=== PATIENT | male | born 1960 | race Caucasian/White ===

== ENCOUNTER 2025-09-11 16:12 | Outpatient (REF) | payer MEDICAID, SELFPAY ==
--- OUTSIDE RECORDS SUMMARY | 2025-09-11 14:00 | XMS_ITS | Encounter Summary ---
Author Organization [employer] Address [address] [facility] [address] [place] [address] Care Team Providers Care Script Coordinator Name Role Phone NameSen MD Primary Care Provider [phone] Reason for Referral * Consultation (Routine) - Authorized Specialty Diagnoses / Procedures Referred By Luis Alfredo t Referred To Contact [facility] Manager / Dentistry Diagnoses Hypertension, unspecified type Sen Anaya MD [address] [place] [address] Phone: tel: fax: Referral ID Status Reason Start Date Expiration Date Visits Requested Visits Authorized [id number] Authorized Consult and Treat 09/11/2025 09/11/2026 1 1 * Consultation (Routine) - Authorized Specialty Diagnoses / Procedures Referred By Contac t Referred To Contact Behavioral Health Diagnoses Recurrent major depressive disorder, remission status unspecified ([facility]) Procedures Referral to Behavioral Health Sen Anaya MD [address] [place] [address] Phone: tel: fax: Referral ID Status Reason Start Date Expiration Date Visits Requested Visits Authorized [id number] Authorized Specialty Services Required 09/11/2025 09/11/2026 1 1 * Consultation (Routine) - Authorized Specialty Diagnoses / Procedures Referred By Contwyatt t Referred To Contact Diagnoses Food insecurity Sen Anaya MD [address] [place] [address] Phone: tel: fax: Referral ID Status Reason Start Date Expiration Date Visits Requested Visits Authorized [id number] Authorized Specialty Services Required 09/11/2025 09/11/2026 1 1 * Imaging (Routine) - Authorized Specialty Diagnoses / Procedures Referred By Contac t Referred To Contact Radiology Diagnoses Hepatitis C virus infection with hepatic coma, unspecified chronicity Procedures US Abdomen Comp w elastography NameSen MD [address] [place] [address] Phone: tel: fax: [address] Phone: tel: fax: Referral ID Status Reason Start Date Expiration Date V isits Requested Visits Authorized [id number] Authorized 09/11/2025 09/11/2026 1 1 Encounter Details Date Type Department Care Team (Late st Contact Info) Description 09/11/2025 2:00 PM EST Office Visit [facility] [address] [place] [phone] Sen Anaya MD [address] [place] [phone] Hypertension, unspecified type (Primary Dx); Hepatitis C virus infection with hepatic coma, unspecified chronicity; Uncomplicated opioid dependence (CMS/HCC) (HCC); Screening examination for STI; Food insecurity; Recurrent major depressive disorder, remission status unspecified (CMS/HCC); Encounter for immunization Social History Tobacco Use Types Packs/Day Years Used Date Smoking Tobacco: Every Day Cigarettes Smokeless Tobacco: Never Tobacco Cessation:Ready to Q uit: Not Asked; Counseling Given: Not Answered Alcohol Use Standard Drinks/Week Comments Yes 0 (1 standard drink = 0.6 oz pur e alcohol) Alcohol Answer Date Recorded How often do you have a drink containing alcohol ? 1 09/11/2025 How many drinks containing a lcohol do you have on a typical day when you are drinking? 2 09/11/2025 How often do you have six or more drinks on one occasion? 1 09/11/2025 Housing Stability Answer Date Recorded What is your housing situation today? I have js pena 09/04/[address] you li ve. Do you have problems with any of the following? None of the above 09/04/2025 Food Insecurity Answer Date Recorded Within the past 12 months, y ou worried that your food would run out before you got money to buy more: Sometimes True 2024 Within the past 12 months,th e food you bought just didn't last and you didn't have enough money to get more: Never True 09/11/2025 Transportation Answer Date Recorded In the past 12 months, has l ack of transportation kept you from medical appts, meetings, work or from getting things needed for daily living? Yes, it has kept me from medical appointments or getting medications. 09/11/2025 Utilities Answer Date Recorded In the past 12 months, has t he electric, gas, oil or water company threatened to shut off services in your home? No 09/04/2025 Depression Answer Date Recorded Patient Health Questionnaire-2 Score 4 09/11/2025 Internet Access Answer Date Recorded Internet Access Q1 Yes 09/04/2025 Internet Access Q2 Not on file 09/04/2025 Sex and Gender Information Value Date Recorded Sex Assigned at Male 09/08/2022 10:15 AM EDT Legal Sex Male 10:15 AM EDT Gender Identity Male 09/08/2022 10:15 AM EDT Sexual Orientation Straight 09/08/2022 10 :15 AM EDT documented as of this encounter Last Filed Vital Signs Vital Sign Reading Time Taken Comments Blood Pressure 162/95 09/11/2025 3:23 PM EST Pulse 119 09/11/2025 2:18 PM EST Temperature 36.5 C (97.7 F) 09/11/2025 2:18 PM EST Respiratory Rate 21 09/11/2025 2:18 PM EST Oxygen Saturation 98% 09/11/2025 2:18 PM EST Inhaled Oxygen Concentration - - Weight 60.8 kg (134 lb) 09/11/2025 2:18 PM EST Height 157.5 cm (5' 2 ) 09/11/2025 2:18 PM EST Body Mass Index 24.51 09/11/2025 2:18 PM EST documented in this encounter Functional Status * Over the past 2 weeks, how often have you been bothered by any of the following problems? Question Answer Date of Assessment Author Patient Health Questionnaire -2 Score 4 09/11/2025 3:04 PM Lorraine French MA * Little interest or pleasure in doing things Answer Date of Assessment Author More than half the days 09/11/2025 3:04 PM Ross Shen MA * Feeling down, depressed, or hopeless Answer Date of Assessment Author More than half the days 09/11/2025 3:04 PM Ross Shen MA * Trouble falling or staying asleep, or sleeping too much Answer Date of Assessment Author Several days 09/11/2025 3:04 PM Ross French MA * Feeling tired or having little energy Answer Date of Assessment Author Several days 09/11/2025 3:04 PM Ross French MA * Poor appetite or overeating Answer Date of Assessment Author Several days 09/11/2025 3:04 PM Ross French MA * Trouble concentrating on things, such as reading the newspaper or watching television Answer Date of Assessment Author More than half the days 09/11/2025 3:04 PM Ross Shen MA * Moving or speaking so slowly that other people could have noticed? Or the opposite - being so fidgety or restless that you have been moving around a lot more than usual. Answer Date of Assessment Author Nearly every day 09/11/2025 3:04 PM Ross French MA * Thoughts that you would be better off or hurting yourself in some way Answer Date of Assessment Author Not at all 09/11/2025 3:04 PM Ross French MA * Over the last 2 weeks, how often have you been bothered by any of the following problems? Question Answer Date of Assessment Author Feeling nervous, anxious, or on edge 3 09/11/2025 3:04 PM Lorraine French MA Not being able to stop or control worrying 3 09/11/2025 3:04 PM EST Lorraine Hartman MA Worrying too much about different things 2 09/11/2025 3:04 PM EST Lorraine Hartman MA Trouble relaxing 2 09/11/2025 3:04 PM EST Ross Bhandari MA Being so restless that it is hard to sit still 1 09/11/2025 3:04 PM Lorraine French MA Becoming easily annoyed or irritable 1 09/11/2025 3:04 PM Lorraine French MA Feeling afraid as if somethi ng awful might happen 0 09/11/2025 3:04 PM EST Lorraine Hartman MA JUSTINE-7 Total Score 12 09/11/2025 3:04 PM Ross French MA documented as of this encounter Progress Notes * Sen Anaya MD - 09/11/2025 2:00 PM EST Images from the original note were not included. Subjective: El Messer is a 65 y.o. male who presents to the office with a friend for a new patient visit. Previous PCP: Pt was previously a patient of [facility]; Last contact 06/26/2021. Patient has not seen a doctor in 2 years. Pt is currently on methadone; last dose today. HPI El Messer, age 65 years Headaches - Headaches with pressure sensation in the head ongoing for approximately 2.5 years - Occur on both sides of the head - Frequency about 3-4 episodes per month, each lasting up to 1-3 days - Headaches described as severe, sometimes causing forgetfulness - Vision changes reported as mild during headache episodes, but denies complete loss of vision - Light sensitivity during headache episodes - Relief with Tylenol and application of wet towel to the head - No specific triggers identified; onset can be random Chest Pain - Chest pain reported, not improved - Occurs intermittently, sometimes while lying down - Frequency variable, occur about 3-4 x / month - May be associated with episodes of high blood pressure High Blood Pressure - Reports episodes of very high blood pressure, including on the day of the visit - No prior regular follow-up for hypertension in past 2 years Forgetfulness - Reports episodes of forgetfulness, including forgetting appointments and household tasks (e.g., leaving oven on, forgetting laundry) - Difficulty remembering to take medications - Family assists with reminders and daily activities Methadone Maintenance - On methadone maintenance therapy for opioid use disorder for approximately 1.5 years - Receives methadone weekly (one week supply) at a local clinic Hepatitis C - History of hepatitis C diagnosed approximately 6 years ago - Treated with medication for 1.5 years [facility] [place] - No regular medical care or follow-up for past 2 years Current concerns: ROBERTS bilateral for about 2 years; with photophobia High blood pressure Chest pain with radiation down left arm ; ~ 3 days in month Pt interested in [employer] MACHINE OPERATOR to help with medication, acts of daily living; memory problems. Physically cabable, but forgets things. Problem List[1] Surgical History[2] None Family History[3] Mother of cardiac issues. Social History Living situation: Living in apartment; but needs help with rent / food / acts of daily living. Care Management coming to exam room; referral made. Employment/Education: Not employed d/t incapacity. Diet/exercise: Has food stamps; bread and rice, chicken, pork. Substance use: -alcohol; 2 six packs every other weekend -tobacco: active tobacco smoker -opioids: on methadone. Sexual activity: Mental health: Patient Health Questionnaire-2 Score: 4 (09/11/2025 3:04 PM) Thoughts that you would be better off or hurting yourself in some way: Not at all (09/11/2025 3:04 PM) Allergies[4] Review of Systems Constitutional: Negative. Negative for fatigue and fever. HENT: Negative. Negative for congestion, dental problem, ear pain, rhinorrhea, sinus pressure, sinus pain, sore throat and tinnitus. Eyes: Negative. Respiratory: Negative for cough, chest tightness, shortness of breath and wheezing. Cardiovascular: Positive for chest pain. Negative for leg swelling. Pt endorses chest pain ~ 3-4 x / month with pain radiating down left arm; this does not happen on exertion. Getting EKG. Gastrointestinal: Negative for abdominal pain, blood in stool, constipation, diarrhea, nausea and vomiting. Endocrine: Negative. Negative for polydipsia, polyphagia and polyuria. Genitourinary: Negative. Negative for decreased urine volume, difficulty urinating, frequency, hematuria, testicular pain and urgency. Musculoskeletal: Negative. Negative for back pain, joint swelling and neck pain. Skin: Negative. Negative for pallor and rash. Allergic/Immunologic: Negative. Neurological: Negative for dizziness, tremors, syncope, weakness and headaches. Hematological: Negative. Psychiatric/Behavioral: Positive for confusion and dysphoric mood. Negative for agitation, self-injury, sleep disturbance and suicidal ideas. The patient is nervous/anxious. came to the exam room and will be working with patient. 01/11/2021 12:03 AM 09/11/2025 2:18 PM 09/11/2025 3:23 PM Vitals Systolic 140 172 162 Diastolic 90 94 95 Heart Rate 78 119 Temp 97.7 ??F (36.5 ??C) Resp 21 Height (in) 5' 4.76 (1.645 m) 5' 2 (1.575 m) Weight (lb) 145.6 134 BMI 24.41 kg/m2 24.51 kg/m2 BSA (m2) 1.74 m2 1.63 m2 Visit Report Report Report Repeat BP 164/96. Physical Exam Constitutional: Appearance: Normal appearance. He is normal weight. HENT: Head: Normocephalic. Right Ear: Tympanic membrane, ear canal and external ear normal. Left Ear: Tympanic membrane, ear canal and external ear normal. Nose: Nose normal. Mouth/Throat: Mouth: Mucous membranes are moist. Pharynx: Oropharynx is clear. Eyes: Extraocular Movements: Extraocular movements intact. Conjunctiva/sclera: Conjunctivae normal. Pupils: Pupils are equal, round, and reactive to light. Cardiovascular: Rate and Rhythm: Normal rate and regular rhythm. Pulses: Normal pulses. Heart sounds: Normal heart sounds. No murmur heard. No gallop. Pulmonary: Effort: Pulmonary effort is normal. No respiratory distress. Breath sounds: Normal breath sounds. No wheezing, rhonchi or rales. Abdominal: General: Abdomen is flat. Palpations: Abdomen is soft. Tenderness: There is no abdominal tenderness. There is no right CVA tenderness, left CVA tendernessor guarding. Musculoskeletal: General: Normal range of motion. Cervical back: Normal range of motion and neck supple. Skin: General: Skin is warm. Capillary Refill: Capillary refill takes less than 2 seconds. Coloration: Skin is not jaundiced. Findings: No lesion. Neurological: General: No focal deficit present. Mental Status: He is alert and oriented to person, place, and time. Cranial Nerves: No cranial nerve deficit. Motor: No weakness. Gait: Gait normal. Psychiatric: Comments: Pt states he is depressed and anxious at times; pt denies SI; met patient in exam roomand will be following. Assessment & Plan Hypertension, unspecified type Orders: ECG 12 lead amLODIPine (Norvasc) 5 MG tablet; Take 1 tablet (5 mg) by mouth Once per day. Blood Pressure kit; Use once a day Follow up in 2 weeks for BP recheck Hepatitis C virus infection with hepatic coma, unspecified chronicity Orders: CBC auto differential; Future Hepatitis C Antibody with Reflex to HCV, RNA, Quantitative, Real-Time PCR; Future US Abdomen Comp w elastography; Future Comprehensive Metabolic Panel; Future Uncomplicated opioid dependence (CMS/HCC) (HCC) On methadone through [facility]. Receives 1 week supply on Fridays. Screening examination for STI Orders: Chlamydia/N. Gonorrhoeae, PCR, Urine Hepatitis B surface antigen, EIA; Future Hepatitis B Surface Antibody, Qualitative; Future HIV-1/2 Antigen and Antibodies, Fourth Generation, with Reflexes; Future Syphilis Screen; Future Food insecurity Orders: Referral to Care Management; Future Recurrent major depressive disorder, remission status unspecified (CMS/HCC) Orders: Referral to Behavioral Health; Future Encounter for immunization Orders: TDAP VACCINE 7 yrs + PCV-20 VACCINE 6 wks + FLU VACCINE TRIVALENT [id number] (Fluarix) 19 yrs + Routine Screening and Health Maintenance Optometry: Yes; referral made. Dental: Yes; referral made. Lab Review: no lab studies available for review at time of visit Current Medications[5] Immunization History Administered Date(s) Administered Hep B, adult 07/04/2010 Influenza injectable quadrivalent preservative free 09/26/2013 Influenza, IIV3, injectable 09/16/2010, 07/21/2011 Moderna Covid-19 Vaccine 12+ 03/15/2021, 04/23/2021 Moderna Covid-19 Vaccine 6+ Bivalent 10/20/2022 Pneumococcal Polysaccharide PPSV23 03/22/2010 Td (adult), 5 Lf tetanus toxoid, preservative free, adsorbed 09/25/2013 Tdap 03/22/2010 Headaches: - Monitor headache frequency and characteristics. Further evaluation deferred until blood pressure is controlled. Chest pain: - Monitor chest pain. Advised to call 911 if pain radiates or becomes severe. Hypertension: - Elevated blood pressure noted during visit. - Prescribed antihypertensive medication. Ordered blood pressure monitor to be picked up at pharmacy. Instructed to record daily blood pressure readings for two weeks. Scheduled follow-up visit in two weeks to assess response to medication and adjust treatment as needed. Hepatitis C: - Prior treatment for hepatitis C completed approximately six years ago. - Ordered blood tests to assess current hepatic function. Ordered liver ultrasound to evaluate hepatic status. Methadone maintenance: - Currently receiving methadone weekly at outside clinic. - No changes to methadone regimen. No referral needed at this time. Cognitive impairment and need for assistance with activities of daily living: - Forgetfulness and difficulty managing daily tasks noted. - Initiated referral for office support assistant ([employer] MACHINE OPERATOR) services to assist with activities of daily living. Dental care: - Referred to dental services. Advised to expect a call within one week to schedule appointment; instructed to call clinic if not contacted. Vision care: - Referred to optometry for eye examination. Screening for sexually transmitted infections: - Ordered laboratory testing for sexually transmitted infections. Social needs (housing, food, transportation): - Needs assistance with housing, food, and transportation identified. - Referred to care management for support with housing, food, and transportation resources. Behavioral health: - Behavioral health concerns identified. - Referred to behavioral health services for further evaluation and support. Next visit consider Acamprosate for alcohol dependence or work through [employer]. Address headaches at next visit, once BP is controlled. [facility] PICTURE ENLARGER Attestation PICTURE ENLARGER Resident Attestation: Patient was seen and evaluated by Shaan HARRISON, in collaboration with Sen Anaya MD who has reviewed my assessment and plan. I, Sen Anaya MD , have reviewed the resident's note and agree with the assessment & plan of care as documented above. Visit Conducted in: Vietnamese Translation by: Provided by [employer] Phone Service ID # [id number] and [phone]. This note was drafted using Ambient (AI) technology. The patient/patient's guardian has been informed and has consented to the use of this technology: Yes [1] Patient Active Problem List Diagnosis Depressive disorder Hepatitis C Hypertension Macrocytosis without anemia Neutropenia Uncomplicated opioid dependence (CMS/HCC) (HCC) Food insecurity Recurrent major depressive disorder (CMS/HCC) [2] No past surgical history on file. [3] No family history on file. [4] Allergies Allergen Reactions Penicillins [5] Current Outpatient Medications Medication Sig Dispense Refill amLODIPine (Norvasc) 5 MG tablet Take 1 tablet (5 mg) by mouth Once per day. 30 tablet 11 Blood Pressure kit Use once a day 1 kit 0 No current facility-administered medications for this visit. documented in this encounter Miscellaneous Notes * Assessment & Plan Note - Sen Anaya MD - 09/11/2025 2:00 PM ESTAssociated Problem(s): Hypertension Orders: ECG 12 lead amLODIPine (Norvasc) 5 MG tablet; Take 1 tablet (5 mg) by mouth Once per day. Blood Pressure kit; Use once a day Follow up in 2 weeks for BP recheck * Assessment & Plan Note - Sen Anaya MD - 09/11/2025 2:00 PM ESTAssociated Problem(s): Hepatitis C Orders: CBC auto differential; Future Hepatitis C Antibody with Reflex to HCV, RNA, Quantitative, Real-Time PCR; Future US Abdomen Comp w elastography; Future Comprehensive Metabolic Panel; Future * Assessment & Plan Note - Sen Anaya MD - 09/11/2025 2:00 PM ESTAssociated Problem(s): Uncomplicated opioid dependence (CMS/HCC) (HCC) On methadone through [facility] Receives 1 week supply on Fridays. * Assessment & Plan Note - Sen Anaya MD - 09/11/2025 2:00 PM ESTAssociated Problem(s): Food insecurity Orders: Referral to Care Management; Future * Assessment & Plan Note - Sen Anaya MD - 09/11/2025 2:00 PM ESTAssociated Problem(s): Recurrent major depressive disorder (CMS/HCC) Orders: Referral to Behavioral Health; Future documented in this encounter Plan of Treatment Upcoming Encounters Date Type Department Care Team (Late st Contact Info) Description 09/27/2025 2:00 PM EST Office Visit [facility] [address] [place] [address] Shaan De Paz FNP [address] [place] [phone] Scheduled Orders Name Type Priority Associated Diagnoses Orde r Schedule CBC auto differential Lab Routine Hepatitis C virus infection with hepatic coma, unspecified chronicity Expected: 09/11/2025 (Approximate), Expires: 09/11/2026 Chlamydia/N. Gonorrhoeae, PCR, Urine Lab Routine Screening Examination For Sti Ordered: 09/11/2025 Hepatitis C Antibody with Reflex to HCV, RNA, Quantitative, Real-Time PCR Lab Routine Hepatitis C virus infection with hepatic coma, unspecified chronicity Expected: 09/11/2025, Expires: 09/11/2026 Hepatitis B surface antigen, EIA Lab Routine Screening Examination For Sti Expected: 09/11/2025 (Approximate), Expires: 09/11/2026 Hepatitis B Surface Antibody, Qualitative Lab Routine Screening Examination For Sti Expected: 09/11/2025 (Approximate), Expires: 09/11/2026 HIV-1/2 Antigen and Antibodies, Fourth Generation, with Reflexes Lab Routine Screening Examination For Sti Expected: 09/11/2025 (Approximate), Expires: 09/11/2026 Syphilis Screen Lab Routine Screening examination for STI Expected: 09/11/2025, Expires: 09/11/2026 US Abdomen Comp w elastography Imaging Routine Hepatitis C virus infection with hepatic coma, unspecified chronicity Expected: 09/11/2025, Expires: 09/11/2026 Comprehensive Metabolic Panel Lab Routine Hepatitis C virus infection with hepatic coma, unspecified chronicity Expected: 09/11/2025 (Approximate), Expires: 09/11/2026 Scheduled Referrals Name Type Priority Associated Diagnoses Orde r Schedule Referral to Care Management Outpatient Referral Routine Food insecurity Expected: 09/11/2025 (Approximate), Expires: 09/11/2026 Referral to [facility] Dental Adult Outpatient Referral Routine Hypertension, unspecified type Expected: 09/11/2025 (Approximate), Expires: 09/11/2026 documented as of this encounter Procedures Procedure Name Priority Date/Time Associated Diagnosis Comments ECG 12-LEAD Routine 09/11/2025 4:12 PM EST Hypertension, unspecified type documented in this encounter Results * ECG 12 lead (09/11/2025 4:12 PM EST) Narrative Name, MD Sen - 09/11/2025 4:12 PM EST EKG Normal sinus rhythm, HR 90; no ischemic changes; non-specific T wave flattening II, III, AVF. Qtc 477 (patient on methadone). Sen Anaya MD ECG ORDERABLES Final Result documented in this encounter Visit Diagnoses Diagnosis Hypertension, unspecified type- Primary Hepatitis C virus infection with hepatic coma, unspecified chronicity Uncomplicated opioid dependence (CMS/HCC) (HCC) Screening examination for STI Food insecurity Recurrent major depressive disorder, remission status unspecified (CMS/HCC) Encounter for immunization documented in this encounter Care Teams Script Coordinator Relationship Specialty Start Date End Date Name, MD Sen [address] [place] [address] PCP - General Internal Medicine 09/11/25 documented as of this encounter
--- OUTSIDE RECORDS SUMMARY | 2025-09-11 17:11 | XMS_ITS | Clinical Summary ---
Author Organization [employer] Address [address] [facility] [address] [place] [address] Care Team Providers Care Budget Clerk Name Role Phone Name, Sen CONKLIN Primary Care Provider [phone] Allergies Active Allergy Reactions Criticality Noted Date Comments Penicillins 10/05/2018 Medications * This document contains information received from the source organization and may not represent a complete record from that organization. amLODIPine (Norvasc) 5 MG tabletIndication s:Hypertension, unspecified type Take 1 tablet (5 mg) by mouth Once per day. 30 tablet 11 09/11/2025 6 Active Blood Pressure kitIndications:H ypertension, unspecified type Use once a day 1 kit 09/11/2025 Active acetaminophen (Tylenol Extra Strength) 500 MG tablet Take 1 tablet (500 mg) by mouth every 8 (eight) hours if needed for mild pain. 90 tablet 09/11/2025 5 Active Active Problems Problem Noted Date Diagnosed Date Uncomplicated opioid dependence (CMS/HCC) 2024 Assessment & Plan (09/11/2025 4:14 PM EST): On methadone through N. Receives 1 week supply on Fridays. Food insecurity 09/11/2025 Assessment & Plan (09/11/2025 4:14 PM EST): Orders: Referral to Care Management; Future Recurrent major depressive disorder 09/11/2025 Assessment & Plan (09/11/2025 4:14 PM EST): Orders: Referral to Behavioral Health; Future Hepatitis C 06/17/2013 Assessment & Plan (09/11/2025 4:14 PM EST): Orders: CBC auto differential; Future Hepatitis C Antibody with Reflex to HCV, RNA, Quantitative, Real-Time PCR; Future US Abdomen Comp w elastography; Future Comprehensive Metabolic Panel; Future Macrocytosis without anemia 06/17/2013 Neutropenia 06/17/2013 Depressive disorder 06/06/2013 Hypertension 06/06/2013 Assessment & Plan (09/11/2025 4:14 PM EST): Orders: ECG 12 lead amLODIPine (Norvasc) 5 MG tablet; Take 1 tablet (5 mg) by mouth Once per day. Blood Pressure kit; Use once a day Follow up in 2 weeks for BP recheck Encounters * This document contains information received from the source organization and may not represent a complete record from that organization. Date Type Department Care Team Description 09/11/2025 2:00 PM EST Office Visit [facility] MEDICINE [address] [place] [id number] Sen Anaya MD Hypertension, unspecified type (Primary Dx); Hepatitis C virus infection with hepatic coma, unspecified chronicity; Uncomplicated opioid dependence (CMS/HCC) (HCC); Screening examination for STI; Food insecurity; Recurrent major depressive disorder, remission status unspecified (CMS/HCC); Encounter for immunization 09/11/2025 Travel 09/08/2025 Telephone [facility] MEDICINE [address] [place] [phone] Sen Anaya MD Chart Prep 09/04/2025 Patient Outreach [facility] [address] [place], [place] [phone] Sen Anaya MD Pre-visit Planning (SDOH negative, Tobacco screening negative. ) 06/14/2025 Telephone [facility] MEDICINE [address] [place] [phone] Pito Rivera MD from Last 3 Months Immunizations Immunization Administration Dates Next Due Hep B, adult 07/04/2010 Influenza injectable quadrivalent preservative f ree 09/26/2013 Influenza, IIV3, injectable 07/21/2011, 0 Influenza, seasonal, injectable, preservative fr ee 09/11/2025 Pneumococcal Conjugate PCV 20 09/11/2025 Pneumococcal Polysaccharide PPSV23 03/22/2010 Td (adult), 5 Lf tetanus tox oid, preservative free, adsorbed 09/25/2013 Tdap 09/11/2025,03/22/2010 Social History Tobacco Use Types Packs/Day Years [...] Orientation Straight 09/08/2022 10 :15 AM EDT Last Filed Vital Signs Vital Sign Reading [...] Mass Index 24.51 09/11/2025 2:18 PM EST Plan of Treatment Upcoming Encounters Date Type Department Care Team (Late st Contact Info) Description 09/27/2025 2:00 PM EST Office Visit [facility] MEDICINE [address] [place] [address] [phone] Shaan De Paz FNP [address] [place], [place] [phone] Health Maintenance Due Date Last Done Comments CT Colonography 1962 Colonoscopy 1962 Colorectal Cancer Screening 1962 FIT DNA/Cologuard 1962 FIT 1962 FOBT 1962 Lipid Panel 1962 Sigmoidoscopy 1962 Hepatitis A Vaccines (1 of 2 - Risk 2-dose series) 1981 Hepatitis B Vaccines (2 of 3 - Risk 3-dose series) 08/01/2010 07/04/2010 Zoster Vaccines (1 of 2) 2012 RSV Patients and Patients Aged 60 years or older (1 - Risk 60-74 years 1-dose series) 2022 COVID-19 Vaccine ( season) 2025 10/20/2022, 04/23/2021, 03/15/2021 Alcohol/Substance Use Screening 09/11/2026 09/11/2025 Depression Screening 09/11/2026 09/11/2025, 09/11/20 25 Disability Screening 09/11/2026 09/11/2025 SDOH Screening 09/11/2026 09/11/2025 Tobacco Screening 09/11/2026 09/11/2025 DTaP/Tdap/Td Vaccines (4 - Td or Tdap) 09/11/2035 09/11/2025, 09/25/2013, 03/22/2010 HIV Screening Completed 09/11/2020, 09/04/2020 Influenza Vaccine Completed 09/11/2025, , 07/21/2011, Additional history exists Pneumococcal Vaccine: 50+ Years Completed 09/11/2025, 03/22/2010 HIB Vaccines Aged Out No longer eligi ble based on patient's age to complete this topic HPV Vaccines Aged Out No longer eligi ble based on patient's age to complete this topic IPV Vaccines Aged Out No longer eligi ble based on patient's age to complete this topic Meningococcal B Vaccine Aged Out No l onger eligible based on patient's age to complete this topic Meningococcal Vaccine Aged Out No elmer rob eligible based on patient's age to complete this topic RSV under 20 months Aged Out No longe r eligible based on patient's age to complete this topic Rotavirus Vaccines Aged Out No longer eligible based on patient's age to complete this topic Procedures Procedure Name Priority Date/Time Associated Diagnosis Comments ECG 12-LEAD Routine 09/11/2025 4:12 PM EST Hypertension, unspecified type HIV 1/2 ANTIGEN/ANTIBODY, FOURTH GENERATION W/RFL Routine 09/11/2020 11:24 AM EST from Last 3 Months or Most Recently Relevant to Health Maintenance Results * ECG 12 lead (09/11/2025 4:12 PM EST) Narrative Name, MD Sen - 09/11/2025 4:12 PM EST EKG Normal sinus rhythm, HR 90; no ischemic changes; non-specific T wave flattening II, III, AVF. Qtc 477 (patient on methadone). Sen Anaya MD ECG ORDERABLES Final Result * HIV 1/2 ANTIGEN/ANTIBODY,FOURTH GENERATION W/RFL (09/11/2020 11:24 AM EST) HIV-1/2 ANTIGEN AND ANTIBODIES, 4TH GENERATION W/ REFLEX NON-REACT MYLES NON-REACT MYLES [facility] Comment: HIV-1 antigen and HIV-1/HIV-2 antibodies were not detected. There is no laboratory evidence of HIV infection. PLEASE NOTE: This information has been disclosed to you from records whose confidentiality may be protected by state law. If your state requires such protection, then the state law prohibits you from making any further disclosure of the information without the specific written consent of the person to whom it pertains, or as otherwise permitted by law. A general authorization for the release of medical or other information is NOT sufficient for this purpose. For additional information please refer to http://Estech.goOutMap.uGift/faq/QEI020 (This link is being provided for informational/ educational purposes only.) The performance of this assay has not been clinically validated in patients less than 2 years old. HIV-1/2 ANTIGEN AND ANTIBODIES, 4TH GENERATION W/ REFLEX NON-REACT MYLES NON-REACT MYLES [facility] Comment: HIV-1 antigen and HIV-1/HIV-2 antibodies were not detected. There is no laboratory evidence of HIV infection. PLEASE NOTE: This information has been disclosed to you from records whose confidentiality may be protected by state law. If your state requires such protection, then the state law prohibits you from making any further disclosure of the information without the specific written consent of the person to whom it pertains, or as otherwise permitted by law. A general authorization for the release of medical or other information is NOT sufficient for this purpose. For additional information please refer to http://Estech.goOutMap.uGift/faq/AIV416 (This link is being provided for informational/ educational purposes only.) The performance of this assay has not been clinically validated in patients less than 2 years old. HIV-1/2 ANTIGEN AND ANTIBODIES, 4TH GENERATION W/ REFLEX NON-REACT MYLES NON-REACT MYLES [facility] Comment: HIV-1 antigen and HIV-1/HIV-2 antibodies were not detected. There is no laboratory evidence of HIV infection. PLEASE NOTE: This information has been disclosed to you from records whose confidentiality may be protected by state law. If your state requires such protection, then the state law prohibits you from making any further disclosure of the information without the specific written consent of the person to whom it pertains, or as otherwise permitted by law. A general authorization for the release of medical or other information is NOT sufficient for this purpose. For additional information please refer to http://Estech.ServiceMax/faq/VKY556 (This link is being provided for informational/ educational purposes only.) The performance of this assay has not been clinically validated in patients less than 2 years old. HIV-1/2 ANTIGEN AND ANTIBODIES, 4TH GENERATION W/ REFLEX NON-REACT MYLES NON-REACT MYLES [facility] Comment: HIV-1 antigen and HIV-1/HIV-2 antibodies were not detected. There is no laboratory evidence of HIV infection. PLEASE NOTE: This information has been disclosed to you from records whose confidentiality may be protected by state law. If your state requires such protection, then the state law prohibits you from making any further disclosure of the information without the specific written consent of the person to whom it pertains, or as otherwise permitted by law. A general authorization for the release of medical or other information is NOT sufficient for this purpose. For additional information please refer to http://Estech.ServiceMax/faq/ZUF947 (This link is being provided for informational/ educational purposes only.) The performance of this assay has not been clinically validated in patients less than 2 years old. 09/11/2020 11:2 4 AM EST us Mike Edward MD LAB BLOOD ORDERABLES Final Res ult [facility] [address] from Last 3 Months or Most Recently Relevant to Health Maintenance Insurance [facility] C3 [facility] C[facility] Care Teams Budget Clerk Relationship Specialty Start Date End Date Name, MD Sen [address] [place] [address] PCP - General Internal Medicine 09/11/25
--- OUTSIDE RECORDS SUMMARY | 2025-09-11 17:11 | XMS_ITS | Encounter Summary ---
Author Organization [employer] Address [address] [facility] [address] [place] [address] Care Team Providers Care Glass Beveller Name Role Phone Name, Sen CONKLIN Primary Care Provider [phone] Reason for Visit * Reason Onset Date Comments New Patient Appt 05/15/2023 Encounter Details Date Type Department Care Team (Late Contact Info) Description 05/15/2023 Telephone [facility] MEDICINE [address] [place] [address] Pito Rivera MD [address] [place] [address] New Patient Appt Social History Tobacco Use Types Packs/Day Years Used Date Smoking Tobacco: Never Assessed Sex and Gender Information Value Date Recorded Sex Assigned at Male 09/08/2022 10:15 AM EDT Legal Sex Male 10:15 AM EDT Gender Identity Male 09/08/2022 10:15 AM EDT Sexual Orientation Straight 09/08/2022 10 :15 AM EDT documented as of this encounter Miscellaneous Notes * Telephone Encounter - Laureen Mckenzie - 05/15/2023 9:51 AM EDT Tc to El to Offer SOLUTION CONSULTANT Appt; Pt responded and was informed that he does not have insurance to please contact [employer] or to please come our insurance enrollment for help; once the process is complete, to please call back at [phone] to get appt as soon as possible. documented in this encounter Plan of Treatment Upcoming Encounters Date Type Department Care Team (Late Contact Info) Description 09/27/2025 2:00 PM EST Office Visit [facility] MEDICINE [address] [place] [address] Shaan De Paz FNP [address] [place] [address] documented as of this encounter Visit Diagnoses Not on filedocumented in this encounter Care Teams Glass Beveller Relationship Specialty Start Date End Date Name, MD Sen [address] [place] [address] PCP - General Internal Medicine 09/11/25 documented as of this encounter
--- OUTSIDE RECORDS SUMMARY | 2025-09-11 17:11 | XMS_ITS | Encounter Summary ---
Author Organization [employer] Address [address] [place] [address] Care Team Providers Care Scientific Programmer Analyst Name Role Phone Name, Sen CONKLIN Primary Care Provider [phone] Encounter Details Date Type Department Care Team (Latest Contact Info) Description 09/11/2025 Travel Social History Tobacco Use Types Packs/Day Years Used Date Smoking Tobacco: Every Day Cigarettes Smokeless Tobacco: Never Alcohol Use Standard Drinks/Week Comments Yes 0 [...] AM EDT documented as of this encounter Functional Status * Over the [...] or control worrying 3 09/11/2025 3:04 PM Lorraine French [place] Worrying too much about different things 2 09/11/2025 3:04 PM Lorraine French [place] Trouble relaxing 2 09/11/2025 3:04 PM Ross Shen [place] Being so restless that it is hard to sit still 1 09/11/2025 3:04 PM Lorraine French MA Becoming easily annoyed or irritable 1 09/11/2025 3:04 PM Lorraine French MA Feeling afraid as if somethi ng awful might happen 0 09/11/2025 3:04 PM Lorraine French MA JUSTINE-7 Total Score 12 09/11/2025 3:04 PM Ross French [place] documented as of this encounter Plan of Treatment Upcoming Encounters Date Type Department Care Team (Late st Contact Info) Description 09/27/2025 2:00 PM EST Office Visit [facility] MEDICINE [address] [place] [address] Shaan De Paz FNP [address] [place] [address] documented as of this encounter Visit Diagnoses Not on filedocumented in this encounter Care Teams Scientific Programmer Analyst Relationship Specialty Start Date End Date Name, MD Sen [address] [place] [address] PCP - General Internal Medicine 09/11/25 documented as of this encounter
--- OUTSIDE RECORDS SUMMARY | 2025-09-11 17:11 | XMS_ITS | Encounter Summary ---
Author Organization [employer] Address [address] [address] [facility] [address] [place] [address] Care Team Providers Care Input Output Clerk Name Role Phone Unavailable Primary Care Provider Unavailabl e Reason for Visit * Reason Onset Date Comments Chart Prep 09/08/2025 Encounter Details Date Type Department Care Team ([facility] st Contact Info) Description 09/08/2025 Telephone [facility] MEDICINE [address] [place] [address] Name, MD Sen [address] [place] [address] Chart Prep Social History Tobacco Use Types Packs/Day Years Used Date Smoking Tobacco: Never Assessed Housing Stability Answer Date Recorded What is your housing situation today? I have js pena 09/04/[address] you li ve. Do you have problems with any of the following? None of the above 09/04/2025 Food Insecurity Answer Date Recorded Within the past 12 months, y ou worried that your food would run out before you got money to buy more: Never True 09/04/2025 Within the past 12 months,th e food you bought just didn't last and you didn't have enough money to get more: Never True Transportation Answer Date Recorded In the past 12 months, has l ack of transportation kept you from medical appts, meetings, work or from getting things needed for daily living? No 09/04/2025 Utilities Answer Date Recorded In the past 12 months, has t he electric, gas, oil or water company threatened to shut off services in your home? No 09/04/2025 Internet Access Answer Date Recorded Internet Access [...] encounter Miscellaneous Notes * Telephone Encounter - Jhonny Campbell [place] - 09/08/2025 1:49 PM EDT Chart Prep Labs: not applicable Images: not applicable Referrals: not applicable Vaccines due: Covid, Flu, PCV20, Hep B, Hep A, RSV, Zoster, and DTAP Screenings: colonoscopyAlcohol/Substance Use Screening Overdue care gaps: SBIRT, PHQ-9, JUSTINE-7, Disability screen, and Tobacco documented in this encounter Plan of Treatment Upcoming Encounters Date Type Department Care Team (Late st Contact Info) Description 09/27/2025 2:00 PM EST Office Visit [facility] MEDICINE [address] [place] [address] Shaan De Paz FNP [address] [place] [address] documented as of this encounter Visit Diagnoses Not on filedocumented in this encounter
[2025-09-11 18:07] LABS: MANUAL DIFF FLAG NO
[2025-09-11 18:43] LABS: Hematocrit 42.6 % (42.0-52.0); Hemoglobin 14.6 g/dl (14.0-18.0); Imm Gran Abs Auto 0.02 X10*3/uL (0.00-0.03); Imm Gran Pct Auto 0.5 % (0.0-0.4); Lymphocytes Absolute Auto 2.2 X10*3/uL (1.2-4.9); Mean Corpuscular HGB Conc 34.3 g/dl (31.0-36.0); Mean Corpuscular Hemoglobin 34.5 pg (27.0-33.0); Mean Corpuscular Volume 100.7 fL (80.0-98.0); NRBC Abs Auto 0.000 X10*3/uL (0.0-0.012); NRBC Pct Auto 0.0 /100WBC (0.0-0.2); Platelet Count 173 X10*3/uL (160-400); Red Blood Count 4.23 X10*6/uL (4.60-5.80); White Blood Count 4.0 X10*3/uL (4.8-10.8)
[2025-09-11 18:48] LABS: Alanine Aminotransferase 98 U/L (0-40); Albumin Level 4.6 g/dL (3.5-5.0); Alkaline Phosphatase 100 U/L (39-117); Anion Gap 14 (12-20); Aspartate Amino Transferase 141 U/L (5-37); Blood Urea Nitrogen 16 mg/dL (9-16); Calcium 9.6 mg/dL (8.4-10.2); Carbon Dioxide 31 mmol/L (22-29); Chloride 104 mmol/L (96-108); Estimated Glomerular Filt Rate > 60; Potassium 4.8 mmol/L (3.3-5.1); Sodium 144 mmol/L (135-145); Total Protein 9.0 g/dL (6.5-8.0)
[2025-09-12 05:32] LABS: Syphilis Screen Nonreactive (Nonreactive)
[2025-09-12 07:03] LABS: HBS Num1 0.85 mIU/mL (0-7.99); HBsAGNum1 0.40 S/CO (0.00-0.99); HIV Num 1 0.08 S/CO (0.00-0.99); Hepatitis B Surface Antigen Negative (Negative); ~HepC Num1 14.61 S/CO (0.00-0.79); ~Hepatitis B Surface Antibody NONREACTIVE (Nonreactive); ~Hepatitis C Antibody Reactive (Nonreactive)
[2025-09-12 10:16] LABS: CT PCR Urine NOT DETECTED (Not Detect.); NG PCR Urine NOT DETECTED (Not Detect.)
[2025-09-14 06:08] LABS: HCV Log PCR 7.18 Log IU/mL (NOT DETECTED); HepC Viral Load 15200000 IU/mL (NOT DETECTED)
== END 2025-09-11 16:13 | disposition home or self-care (01) ==
LOC: HO.HHCL 16:12
PROVIDERS: PCP Internal Medicine Geriatric Medicine; Visit Provider Internal Medicine Geriatric Medicine
DX: Z20.2 Contact with and (suspected) exposure to infections with a predominantly sexual mode of transmission (principal); B19.21 Unspecified viral hepatitis C with hepatic coma; Z11.4 Encounter for screening for human immunodeficiency virus [HIV]
CPT/HCPCS: 80053; 85025; 86706; 86780; 86803; 87340; 87389; 87491; 87522; 87591

== ENCOUNTER 2025-09-28 09:31 | Outpatient (REF) | payer MEDICAID, SELFPAY ==
--- OUTSIDE RECORDS SUMMARY | 2025-09-27 14:00 | XMS_ITS | Encounter Summary ---
Author Organization [employer] Address [address] [place] [address] Care Team Providers Care Athletic Team Physician Name Role Phone Name, Sen CONKLIN Primary Care Provider [phone] Encounter Details Date Type Department Care Team (Late st Contact Info) Description 09/27/2025 2:00 PM EST Office Visit [facility] MEDICINE [address] [place] [address] Moises Whitman MD [address] [place], [place] [id number] Primary hypertension (Primary Dx); Macrocytosis without anemia Social History Tobacco Use Types Packs/Day Years Used Date Smoking Tobacco: Every Day Cigarettes Passive Smoke Exposure: Current Smokeless Tobacco: Never Tobacco Cessation:Ready to Q [...] Sign Reading Time Taken Comments Blood Pressure 152/90 09/27/2025 2:17 PM EST Pulse 88 09/27/2025 2:17 PM EST Temperature 37 C (98.6 F) 09/27/2025 2:17 PM EST Respiratory Rate 20 09/27/2025 2:17 PM EST Oxygen Saturation 98% 09/27/2025 2:17 PM EST Inhaled Oxygen Concentration - - Weight 62.4 kg (137 lb 9.6 oz) 09/27/2025 2:17 P M EST Height 157.5 cm (5' 2 ) 09/27/2025 2:17 PM EST Body Mass Index 25.17 09/27/2025 2:17 PM EST documented in this encounter Progress Notes * Moises Whitman MD - 09/27/2025 2:00 PM EST El Messer is a 65 y.o. male who presents with Slovak speaking friend for a follow up Blood Pressure check and possible medication adjustment. Active Concerns: Hypertension Headache Hep C AST>ALT pattern enzyme elevation CBC abnormalities El Messer, 65 years Hypertension - History of high blood pressure - Blood pressure medication taken almost daily, usually at the same time, sometimes in the afternoon - Blood pressure measured at home, some readings perceived as inaccurate - Previous blood pressure reading two weeks ago: 162/95 Headache and Visual Disturbance - Occasional mild headache - Reports transient blurred vision, currently not present Hepatitis C - History of hepatitis C infection - Underwent approximately one year of treatment about five years ago Viral Infection - Informed of having a viral infection prior to the encounter Anemia - Noted to have low red blood cell count prior to the encounter (macrocytic anemia) Vitamin Deficiency - Informed of possible low vitamin B12 prior to the encounter Problem List[1] Allergies[2] Review of Systems Constitutional: Negative for activity change, appetite change, fatigue, fever and unexpected weightchange. HENT: Negative. Occasional ROBERTS with increased BP. Eyes: Negative. Respiratory: Negative. Cardiovascular: Negative. Gastrointestinal: Negative. Endocrine: Negative. Genitourinary: Negative. Musculoskeletal: Negative. Skin: Negative. Neurological: Positive for light-headedness. Negative for syncope and weakness. Psychiatric/Behavioral: Negative for agitation, behavioral problems and confusion. The patient is not nervous/anxious. Vitals: 09/27/25 1417 BP: (!) 152/90 BP Location: Right arm Patient Position: Sitting BP Cuff Size: Adult Pulse: 88 Resp: 20 Temp: 98.6 ??F (37 ??C) TempSrc: Oral SpO2: 98% Weight: 137 lb 9.6 oz (62.4 kg) Height: 5' 2 (1.575 m) Discussed labs with patient. 09/11/25 Lab Results CBC w Diff Component Ref Range & Units (hover) 2 wk ago 5 yr ago White Blood Count 4.0 Low Red Blood Count 4.23 Low Hemoglobin 14.6 13.6 R Hematocrit 42.6 38.6 R Mean Corpuscular Volume 100.7 High Mean Corpuscular Hemoglobin 34.5 High Mean Corpuscular HGB Conc 34.3 Red Cell Distribution Width 13.6 Platelet Count 173 222 R Mean Platelet Volume 11.7 Neutrophils Percent Auto 26.4 Low Imm Gran Pct Auto 0.5 High Lymphocytes Percent Auto 53.8 High Monocytes Percent Auto 15.5 High Eosinophils Percent Auto 2.5 Basophils Percent Auto 1.3 NRBC Pct Auto 0.0 Neutrophils Absolute Auto 1.1 Low Imm Gran Abs Auto 0.02 Lymphocytes Absolute Auto 2.2 Monocytes Absolute Auto 0.6 Eosinophils Absolute Auto 0.1 Basophils Absolute Auto 0.1 NRBC Abs Auto 0.000 CMP Component Ref Range & Units (hover) 2 wk ago (09/11/25) 5 yr ago (09/11/20) 5 yr ago (09/11/20) 5 yr ago (09/04/20) Sodium 144 Potassium 4.8 Chloride 104 Carbon Dioxide 31 High Anion Gap 14 Urea Nitrogen (BUN) 16 12 R Creatinine, Serum 0.93 Estimated Glomerular Filt Rate >60 Comment: Chronic Kidney Disease: Estimated GFR < 60 mL/min/1.37u2Hddgjb Kidney Disease: Estimated GFR < 15 mL/min/1.73m2 Glucose 120 High Calcium 9.6 Bilirubin, Total 0.8 Aspartate Amino Transferase 141 High Alanine Aminotransferase 98 High 92 High R 123 High R Total Protein 9.0 High Albumin Level 4.6 Alkaline Phosphatase 100 Protein Gap Chlamydia / Gonorrhea PCR Urine - both Not Detected. Syphilis Screen - Nonreactive HIV-1/2 Antigen and Antibodies, Fourth Generation, with Reflexes - Nonreactive Hep B Surface Ag - Negative Hep B Surface AB - Nonreactive Hepatitis C Antibody with Reflex to HCV, RNA, Quantitative, Real-Time PCR : Hep C AB reactive Hep C Viral load: [id number] HCV Log PCR : 7.18 Dr. Dumont following for Hep C. Physical Exam Constitutional: Appearance: Normal appearance. He is normal weight. HENT: Head: Normocephalic. Right Ear: Tympanic membrane, ear canal and external ear normal. Left Ear: Tympanic membrane, ear canal and external ear normal. Nose: Nose normal. Mouth/Throat: Mouth: Mucous membranes are moist. Pharynx: Oropharynx is clear. Eyes: Extraocular Movements: Extraocular movements intact. Pupils: Pupils are equal, round, and reactive to light. Cardiovascular: Rate and Rhythm: Normal rate and regular rhythm. Pulses: Normal pulses. Heart sounds: Normal heart sounds. No murmur heard. No gallop. Pulmonary: Effort: Pulmonary effort is normal. Breath sounds: Normal breath sounds. No stridor. No wheezing, rhonchi or rales. Abdominal: General: Abdomen is flat. Bowel sounds are normal. Palpations: Abdomen is soft. There is no mass. Tenderness: There is no abdominal tenderness. There is no guarding. Musculoskeletal: General: Normal range of motion. Cervical back: Normal range of motion. Skin: General: Skin is warm. Capillary Refill: Capillary refill takes less than 2 seconds. Neurological: General: No focal deficit present. Mental Status: He is alert. Psychiatric: Mood and Affect: Mood normal. Behavior: Behavior normal. Assessment & Plan Primary hypertension Added Telmisartan 40 mg to Norvasc 5 mg. Macrocytosis without anemia B12/Folate Serum Panel and Magnesium lab ordered B12, Folic Acid Supplements ordered Primary hypertension: - Persistent elevated blood pressure despite current antihypertensive therapy. - Continue current antihypertensive medication. Initiate second antihypertensive agent. Monitor blood pressure daily and record readings with date and time. Follow-up appointment scheduled in two weeks to reassess blood pressure and adjust medication regimen as needed. Macrocytosis without anemia: - Macrocytosis identified; possible etiologies include vitamin B12 or folate deficiency. - Ordered laboratory tests for vitamin B12 and folate levels. Prescribed vitamin B12 and folic acidsupplementation to be started after completion of blood tests. Hepatitis C infection: - Chronic hepatitis C infection confirmed; evidence of hepatic involvement. - Ordered additional laboratory tests to further evaluate hepatic function and guide antiviral therapy. Referral to hepatology for management. Advised to avoid alcohol due to hepatic strain. Coordination with another provider (Nadya Ferreira) for further evaluation and treatment planning. Orders: cyanocobalamin (Vitamin B-12) 1000 MCG tablet; Take 1 tablet (1,000 mcg) by mouth Once per day. folic acid (Folvite) 1 MG tablet; Take 1 tablet (1 mg) by mouth Once per day. Vitamin B12/Folate, Serum Panel; Future Magnesium; Future Current Medications[3] Follow up in about 2 weeks (around 10/11/2025). For BP check. [facility] SPECIAL EDUCATION CURRICULUM SPECIALIST Attestation SPECIAL EDUCATION CURRICULUM SPECIALIST Resident Attestation: Patient was seen and evaluated by Shaan HARRISON, in collaboration with Moises Whitman MD who has reviewed my assessment and plan. I, Moises Whitman MD , have reviewed the resident's note and agree with the assessment & plan of care as documented above. Visit Conducted in: Iranian Translation by: friend accompanying patient. [1] Patient Active Problem List Diagnosis Mild depression Hepatitis C Hypertension Macrocytosis without anemia Neutropenia Uncomplicated opioid dependence (CMS/HCC) (HCC) Food insecurity Anxiety [2] Allergies Allergen Reactions Penicillins [3] Current Outpatient Medications: acetaminophen (Tylenol Extra Strength) 500 MG tablet, Take 1 tablet (500 mg) by mouth every 8 (eight) hours if needed for mild pain., Disp: 90 tablet, Rfl: 0 amLODIPine (Norvasc) 5 MG tablet, Take 1 tablet (5 mg) by mouth Once per day., Disp: 30 tablet, Rfl: 11 Blood Pressure kit, Use once a day, Disp: 1 kit, Rfl: 0 cyanocobalamin (Vitamin B-12) 1000 MCG tablet, Take 1 tablet (1,000 mcg) by mouth Once per day., Disp: 30 tablet, Rfl: 11 folic acid (Folvite) 1 MG tablet, Take 1 tablet (1 mg) by mouth Once per day., Disp: 30 tablet, Rfl: 11 telmisartan (Micardis) 20 MG tablet, Take 1 tablet (20 mg) by mouth Once per day., Disp: 30 tablet,Rfl: 11 documented in this encounter Miscellaneous Notes * Assessment & Plan Note - Moises Whitman MD - 09/27/2025 2:00 PM EST Associated Problem(s): Hypertension Added Telmisartan 40 mg to Norvasc 5 mg. * Assessment & Plan Note - Moises Whitman MD - 09/27/2025 2:00 PM EST Associated Problem(s): Macrocytosis without anemia B12/Folate Serum Panel and Magnesium lab ordered B12, Folic Acid Supplements ordered Primary hypertension: - Persistent elevated blood pressure despite current antihypertensive therapy. - Continue current antihypertensive medication. Initiate second antihypertensive agent. Monitor blood pressure daily and record readings with date and time. Follow-up appointment scheduled in two weeks to reassess blood pressure and adjust medication regimen as needed. Macrocytosis without anemia: - Macrocytosis identified; possible etiologies include vitamin B12 or folate deficiency. - Ordered laboratory tests for vitamin B12 and folate levels. Prescribed vitamin B12 and folic acidsupplementation to be started after completion of blood tests. Hepatitis C infection: - Chronic hepatitis C infection confirmed; evidence of hepatic involvement. - Ordered additional laboratory tests to further evaluate hepatic function and guide antiviral therapy. Referral to hepatology for management. Advised to avoid alcohol due to hepatic strain. Coordination with another provider (Nadya Ferreira) for further evaluation and treatment planning. Orders: cyanocobalamin (Vitamin B-12) 1000 MCG tablet; Take 1 tablet (1,000 mcg) by mouth Once per day. folic acid (Folvite) 1 MG tablet; Take 1 tablet (1 mg) by mouth Once per day. Vitamin B12/Folate, Serum Panel; Future Magnesium; Future documented in this encounter Plan of Treatment Upcoming Encounters Date Type Department Care Team (Late st Contact Info) Description 10/11/2025 3:15 PM EST Office Visit [facility] MEDICINE [address] [place] [address] Shaan De Paz FNP [address] [place] [address] documented as of this encounter Procedures Procedure Name Priority Date/Time Associated Diagnosis Comments VITAMIN B12/FOLATE, SERUM PANEL Routine 09/28/2025 9:40 AM EST Macrocytosis without anemia MAGNESIUM Routine 09/28/2025 9:40 AM EST Macrocytosis without anemia documented in this encounter Results * Magnesium (09/28/2025 9:40 AM EST) Magnesium 1.8 1.6 - 2.6 mg/dL [facility] Blood Venous blood specimen / Unknown 09/28/2025 9:40 AM EST 09/28/2025 11:07 AM EST us Shaan De Paz [employer]I [employer] ATTENDANT LAB BLOOD ORDERABLES Final Re sult [facility] [address] [place] [address] [phone] * Vitamin B12/Folate, Serum Panel (09/28/2025 9:40 AM EST) Vitamin B12 591 200 - 900 pg/mL [facility] Comment:NORMAL 200-900 PG/ML INDETERMINATE 160-199 PG/ML DEFICIENT < 160 PG/ML Folate 10.8 > or = 4.0 ng/mL [facility] Comment:Reference Values:> o r = 4.0 ng/mL< 4.0 ng/mL suggests folate deficiency Methotrexate, aminopterin and folinic acid(leucovorin) are chemotherapeutic agents whose molecularstructures are similar to folate; therefore, the Architectfolate assay cannot be used for patients using these drugs. Blood Venous blood specimen / Unknown 09/28/2025 9:40 AM EST 09/28/2025 11:07 AM EST Shaan De Paz [employer] BAR ATTENDANT LAB BLOOD ORDERABLES Final Re sult [facility] [address] [place] [address] [phone] documented in this encounter Visit Diagnoses Diagnosis Primary hypertension- Primary Unspecified essential hypertension Macrocytosis without anemia Other specified diseases of blood and blood-forming organs documented in this encounter Care Teams Athletic Team Physician Relationship Specialty Start Date End Date Name, MD Sen [address] [place] [address] PCP - General Internal Medicine 09/11/25 documented as of this encounter
[2025-09-28 11:25] LABS: Reticulocytes Absolute 0.062 X10*6/uL (0.026-0.095)
[2025-09-28 11:28] LABS: INTERNATIONAL NORM RATIO 1.0 (0.9-1.1); Prothrombin Time 12.1 SEC (11.2-13.5)
[2025-09-28 11:51] LABS: Alanine Aminotransferase 71 U/L (0-40); Albumin Level 3.6 g/dL (3.5-5.0); Alkaline Phosphatase 103 U/L (39-117); Anion Gap 10 (12-20); Aspartate Amino Transferase 79 U/L (5-37); Blood Urea Nitrogen 9 mg/dL (9-16); Calcium 8.5 mg/dL (8.4-10.2); Carbon Dioxide 28 mmol/L (22-29); Chloride 107 mmol/L (96-108); Estimated Glomerular Filt Rate > 60; Magnesium 1.8 mg/dL (1.6-2.6); Potassium 4.0 mmol/L (3.3-5.1); Sodium 141 mmol/L (135-145); Total Protein 7.0 g/dL (6.5-8.0)
[2025-09-28 12:26] LABS: HBc Num1 9.09 S/CO (0.00-0.79)
[2025-09-28 12:28] LABS: Folate 10.8 ng/mL (> or = 4.0); Vitamin B12 591 pg/mL (200-900)
--- OUTSIDE RECORDS SUMMARY | 2025-09-28 13:11 | XMS_ITS | Clinical Summary ---
Author Organization [employer] Address [address] [facility] 7t [place] [address] Care Team Providers Care Inorganic Chemist Name Role Phone Name, Sen CONKLIN Primary Care Provider [phone] Allergies Active Allergy Reactions Criticality Noted Date Comments Penicillins 10/05/2018 Medications * This document contains information received from the source organization and may not represent a complete record from that organization. amLODIPine (Norvasc) 5 MG tabletIndications :Hypertension, unspecified type Take 1 tablet (5 mg) by mouth Once per day. 30 tablet 11 09/11/2025 09/11/20 26 Active Blood Pressure kitIndications:Hy pertension, unspecified type Use once a day 1 kit 09/11/2025 Active acetaminophen (Tylenol Extra Strength) 500 MG tablet Take 1 tablet (500 mg) by mouth every 8 (eight) hours if needed for mild pain. 90 tablet 09/11/2025 10/11/20 25 Active cyanocobalamin (Vitamin B-12) 1000 MCG tabletIndications :Macrocytosis without anemia Take 1 tablet (1,000 mcg) by mouth Once per day. 30 tablet 09/28/2025 10:01 AM EST 09/27/2025 09/27/20 26 Active folic acid (Folvite) 1 MG tabletIndications :Macrocytosis without anemia Take 1 tablet (1 mg) by mouth Once per day. 30 tablet 09/28/2025 10:01 AM EST 09/27/2025 09/27/20 26 Active telmisartan (Micardis) 20 MG tabletIndications :Primary hypertension Take 1 tablet (20 mg) by mouth Once per day. 30 tablet 11 09/28/2025 10:01 AM EST 09/27/2025 09/27/20 26 Active Active Problems Problem Noted Date Diagnosed Date Anxiety 09/12/2025 Uncomplicated opioid dependence (CMS/HCC) 2024 Assessment & Plan (09/11/2025 4:14 PM EST): On methadone through N. Receives 1 week supply on Fridays. Food insecurity 09/11/2025 Assessment & Plan (09/11/2025 4:14 PM EST): Orders: Referral to Care Management; Future Hepatitis C 06/17/2013 Assessment & Plan (09/11/2025 4:14 PM EST): Orders: CBC auto differential; Future Hepatitis C Antibody with Reflex to HCV, RNA, Quantitative, Real-Time PCR; Future US Abdomen Comp w elastography; Future Comprehensive Metabolic Panel; Future Macrocytosis without anemia 06/17/2013 Assessment & Plan (09/27/2025 3:57 PM EST): B12/Folate Serum Panel and Magnesium lab ordered [...] folate levels. Prescribed vitamin B12 and folic acid supplementation to be started after completion of blood [...] Vitamin B12/Folate, Serum Panel; Future Magnesium; Future Neutropenia 06/17/2013 Mild depression 06/06/2013 Assessment & Plan (09/12/2025 8:22 AM EST): >>ASSESSMENT AND PLAN FOR RECURRENT MAJOR DEPRESSIVE DISORDER (CMS/HCC) WRITTEN ON 09/11/2025 4:14 PM BY SEN TURNER MD Orders: Referral to Behavioral Health; Future Hypertension 06/06/2013 Assessment & Plan (09/27/2025 3:57 PM EST): Added Telmisartan 40 mg to Norvasc 5 mg. Assessment & Plan (09/11/2025 4:14 PM EST): [...] organization. Date Type Department Care Team Description 09/28/2025 Orders Only [address] [address] Nadya Dumont MD 09/27/2025 2:00 PM EST Office Visit [address] [address] Moises Whitman MD Primary hypertension (Primary Dx); Macrocytosis without anemia 09/27/2025 Orders Only [facility] [address] [place], [place] [phone] Moises Whitman MD Primary hypertension (Primary Dx) 09/27/2025 Travel 09/26/[address] [address] Sen Turner MD CHARTPREP 09/22/2025 Orders Only [address] [address] Jackie Vallejo, RN Hepatitis C virus infection with hepatic coma, unspecified chronicity 09/15/[address] [address] Jackie Vallejo, RN hep C Referral 09/14/2025 Patient Outreach [address] [address] Sen Turner MD Care Coordination (CHW outreach for SDOH food needs-no answer LVM ) 09/14/2025 Results Follow-Up [address] [address] Sen Turner MD Hepatitis C Viral RNA, Quantitative, Real-Time PCR 09/12/2025 Orders Only [address] [address] Sen Turner MD 09/12/[address] [address] Sen Turner MD Appointment Request (Eye examination) 09/11/2025 2:00 PM EST Office Visit [address] [address] Sen Turner MD Hypertension, unspecified type (Primary Dx); Hepatitis C virus infection with hepatic coma, unspecified chronicity; Uncomplicated opioid dependence (CMS/HCC) (HCC); Screening examination for STI; Food insecurity; Recurrent major depressive disorder, remission status unspecified (CMS/HCC); Encounter for immunization 09/11/2025 Travel 09/08/[address] [address] Sen Turner MD Chart Prep 09/04/2025 Patient Outreach [facility] [address] [place], [place] [phone] Sen Turner MD Pre-visit Planning (SDOH negative, Tobacco screening negative. ) from Last 3 Months Immunizations Immunization Administration [...] Mass Index 25.17 09/27/2025 2:17 PM EST Plan of Treatment Upcoming Encounters Date Type Department Care Team (Late st Contact Info) Description 10/11/2025 3:15 PM EST Office Visit [facility] [address], [place] [phone] Shaan De Paz FNP [address] [place], [place] [phone] Health Maintenance Due Date Last Done Comments CT Colonography 1962 Colonoscopy 1962 Colorectal Cancer Screening 1962 FIT DNA/Cologuard 1962 FIT 1962 FOBT 1962 Lipid Panel 1962 Sigmoidoscopy 1962 Hepatitis A Vaccines (1 of 2 - Risk 2-dose series) 1981 Hepatitis B Vaccines (2 of 3 - Risk 3-dose series) 08/01/2010 07/04/2010 RSV Patients and Patients Aged 60 years or older (1 - Risk 50-74 years 1-dose series) 2012 Zoster Vaccines (1 of 2) 2012 COVID-19 Vaccine ( - season) 2025 10/20/2022, 04/23/2021, 03/15/2021 Alcohol/Substance Use Screening 09/11/2026 09/11/2025 Depression Screening 09/11/2026 09/11/2025, 09/11/20 25 Disability Screening 09/11/2026 09/11/2025 SDOH Screening 09/11/2026 09/11/2025 Tobacco Screening 09/27/2026 09/27/2025 DTaP/Tdap/Td Vaccines (4 - Td or Tdap) 09/11/2035 09/11/2025, 09/25/2013, 03/22/2010 HIV Screening Completed 09/11/2025, 01/2020, 09/04/2020 Influenza Vaccine Completed 09/11/2025, , 07/21/2011, [...] Procedure Name Priority Date/Time Associated Diagnosis Comments HEPATIC FUNCTION PANEL Routine 09/28/2025 9:40 AM EST COMPREHENSIVE METABOLIC PANEL Routine 09/28/2025 9:40 AM EST PROTHROMBIN TIME-INR Routine 09/28/2025 9:40 AM EST RETICULOCYTE COUNT Routine 09/28/2025 9: 40 AM EST Primary hypertension MAGNESIUM Routine 09/28/2025 9:40 AM EST Macrocytosis without anemia VITAMIN B12/FOLATE, SERUM PANEL Routine 09/28/2025 9:40 AM EST Macrocytosis without anemia HEPATITIS C VIRAL RNA, QUANTITATIVE, REAL-TIME PCR Routine 09/12/2025 4:19 PM EST COMPREHENSIVE METABOLIC PANEL Routine 09/11/2025 4:19 PM EST Hepatitis C virus infection with hepatic coma, unspecified chronicity SYPHILIS SCREEN Routine 09/11/2025 4:19 PM EST Screening examination for STI HIV 1/2 ANTIGEN/ANTIBODY, FOURTH GENERATION W/RFL Routine 09/11/2025 4:19 PM EST Screening examination for STI HEPATITIS B SURFACE ANTIBODY, QUALITATIVE Routine 09/11/2025 4:19 PM EST Screening examination for STI HEPATITIS B SURFACE ANTIGEN, EIA Routine 09/11/2025 4:19 PM EST Screening examination for STI HEPATITIS C AB W/REFL TO HCV RNA, QN, PCR Routine 09/11/2025 4:19 PM EST Hepatitis C virus infection with hepatic coma, unspecified chronicity CBC WITH AUTO DIFFERENTIAL Routine 09/11/2025 4:19 PM EST Hepatitis C virus infection with hepatic coma, unspecified chronicity CHLAMYDIA/TRICHOMONAS /NEISSERIA GONORRHOEAE, PCR, URINE Routine 09/11/2025 4:19 PM EST Screening examination for STI ECG 12-LEAD Routine 09/11/2025 4:12 PM EST Hypertension, unspecified type from Last 3 Months Results * Vitamin B12/Folate, Serum Panel (09/28/2025 9:40 AM EST) Vitamin B12 591 200 - 900 pg/mL [facility] Comment:NORMAL 200-900 PG/ML INDETERMINATE 160-199 PG/ML DEFICIENT < 160 PG/ML Folate 10.8 > or = 4.0 ng/mL [facility] Comment:Reference Values:> o r = 4.0 ng/mL< 4.0 ng/mL suggests folate deficiency Methotrexate, aminopterin and folinic acid(leucovorin) are chemotherapeutic agents whose molecularstructures are similar to folate; therefore, the Architectfolate assay cannot be used for patients using these drugs. Blood Venous blood specimen / Unknown 09/28/2025 9:40 AM EST 09/28/2025 11:07 AM EST Shaan De Paz [facility] LAB BLOOD ORDERABLES Final Re sult [facility] [address] [place] [address] [phone] * Prothrombin Time-INR (09/28/2025 9:40 AM EST) Prothrombin Time 12.1 11.2 - 13.5 SEC [facility] INTERNATIONAL NORM RATIO 1.0 0.9 - 1.1 [facility] Comment:INTERNATIONAL NORMAL IZED RATIO (INR) REFERENCE RANGES Reference RangeFor patients not on anticoagulant therapy: 0.9 - 1.1INR ranges for oral anticoagulanttherapy:For prevention and treatment of venous thrombosis and pulmonary embolism: 2.0 - 3.0For acute myocardial infarction with aspirin therapy: 2.0 - 3.0For acute myocardial infarction without aspirin therapy: 3.0 - 4.0For patients with mechanical prosthetic heart valves: 2.5 - 3.5 09/28/2025 9:40 AM EST 09/28/2025 11:07 AM EST Nadya Dumont MD LAB BLOOD ORDERABLES Final R esult Performing Organization Address [facility] Co de Phone Number [facility] [address] [place] [phone] * Magnesium (09/28/2025 9:40 AM EST) [facility] Magnesium 1.8 1.6 - 2.6 mg/dL [facility] Blood Venous blood specimen / Unknown 09/28/2025 9:40 AM EST 09/28/2025 11:07 AM EST Shaan ROLLINSP LAB BLOOD ORDERABLES Final Re sarah beth Performing Organization Address [facility] Co de Phone Number [facility] [address] [place] [phone] * Hepatic Function Panel (09/28/2025 9:40 AM EST) Bilirubin, Direct 0.2 0.0 - 0.5 mg/dL [facility] 09/28/2025 9:40 AM EST 09/28/2025 11:07 AM EST Nadya Dumont MD LAB BLOOD ORDERABLES Final R esult [facility] [address] [place] [phone] * (ABNORMAL) Comprehensive Metabolic Panel (09/28/2025 9:40 AM EST) Only the most recent of2 resultswithin the time period is included. Sodium 141 135 - 145 mmol/L [facility] Potassium 4.0 3.3 - 5.1 mmol/L [facility] Chloride 107 96 - 108 mmol/L [facility] Carbon Dioxide 28 22 - 29 mmol/L [facility] Anion Gap 10(L) 12 - 20 [facility] Urea Nitrogen (BUN) 9 9 - 16 mg/dL [facility] Creatinine, Serum 0.63 0.5 - 1.4 mg/dL [facility] Estimated Glomerular Filt Rate >60 [facility] Comment:Chronic Kidney Disea se: Estimated GFR < 60 mL/min/1.68h2Lzpith Kidney Disease: Estimated GFR < 15 mL/min/1.73m2 Glucose 115 60 - 115 mg/dL [facility] Calcium 8.5 8.4 - 10.2 mg/dL [facility] Bilirubin, Total 0.3 0.0 - 1.0 mg/dL [facility] Aspartate Amino Transferase 79(H) 5 - 37 U/L [facility] Alanine Aminotransferase 71(H) 0 - 40 U/L [facility] Total Protein 7.0 6.5 - 8.0 g/dL [facility] Albumin Level 3.6 3.5 - 5.0 g/dL [facility] Alkaline Phosphatase 103 39 - 117 U/L [facility] 09/28/2025 9:40 AM EST 09/28/2025 11:07 AM EST Nadya Dumont MD LAB BLOOD ORDERABLES Final R esult Performing Organization Address [facility] de Phone Number [facility] [address] [place] [phone] * (ABNORMAL) Hepatitis C Viral RNA, Quantitative, Real-Time PCR (09/12/2025 4:19 PM EST) [facility] Hepatitis C Viral Load [id number]( A) NOT DETECTED IU/mL [facility] HCV Log PCR 7.18(A) NOT DETECTED Log IU/mL [facility] Comment:For additional infor mation, please refer tohttp://education.[employer]/faq/XJK19y8(This link is being provided for informational/educational purposes only.)THIS TEST WAS PERFORMED AT:[employer] [place] [phone] MCKINNON MD 09/12/2025 4:19 PM EST 09/12/2025 5:20 PM EST Sen Turner MD LAB BLOOD ORDERABLES Final Resul t Performing Organization Address [facility] Phone Number [facility] [address] [place] [phone] * Chlamydia/N. Gonorrhoeae, PCR, Urine (09/11/2025 4:19 PM EST) [facility] CT PCR, Urine NOT DETECTED Not Detect. [facility] Comment:A not detected test result does not exclude the possibilityof infection because test results can be affected byimproper specimen collection, concurrent antibiotic therapy,or the number of organisms in the specimen which may bebelow the sensitivity of the test. As with many diagnostictests, results from the Xpert CT/NG assay should beinterpreted in conjunction with other laboratory andclinical data available to the clinician.The Xpert CT/NG assay should not be used for the evaluationof suspected sexual abuse or for other medico-legalindications. Additional testing is recommended in anycircumstance when false positive or false negative resultscould lead to adverse medical, social or psychologicalconsequences. NG PCR, Urine NOT DETECTED Not Detect. [facility] Comment:A not detected test result does not exclude the possibilityof infection because test results can be affected byimproper specimen collection, concurrent antibiotic therapy,or the number of organisms in the specimen which may bebelow the sensitivity of the test. As with many diagnostictests, results from the Xpert CT/NG assay should beinterpreted in conjunction with other laboratory andclinical data available to the clinician.The Xpert CT/NG assay should not be used for the evaluationof suspected sexual abuse or for other medico-legalindications. Additional testing is recommended in anycircumstance when false positive or false negative resultscould lead to adverse medical, social or psychologicalconsequences. Urine (Urine, Random) 09/11/2025 4:19 PM EST 09/11/2025 5:59 PM EST us Sen Turner MD LAB URINE ORDERABLES Final Resul t Performing Organization Address [facility] Co de Phone Number [facility] [address] [place] [phone] * Syphilis Screen (09/11/2025 4:19 PM EST) Syphilis Screen Nonreactive Nonreactive [facility] Blood 09/11/2025 4:19 PM EST 09/11/2025 5:59 PM EST us Sen Turner MD LAB BLOOD ORDERABLES Final Resul t Performing Organization Address [facility] Co de Phone Number [facility] [address] [place] [phone] * (ABNORMAL) CBC auto differential (09/11/2025 4:19 PM EST) White Blood Count 4.0(L) 4.8 - 10.8 X10*3/uL [facility] Red Blood Count 4.23(L) 4.60 - 5.80 X10*6/uL [facility] Hemoglobin 14.6 14.0 - 18.0 g/dl [facility] Hematocrit 42.6 42.0 - 52.0 % [facility] Mean Corpuscular Volume 100.7(H) 80.0 - 98.0 fL [facility] Mean Corpuscular Hemoglobin 34.5(H) 27.0 - 33.0 pg [facility] Mean Corpuscular HGB Conc 34.3 31.0 - 36.0 g/dl [facility] Red Cell Distribution Width 13.6 11.0 - 16.0 % [facility] Platelet Count 173 160 - 400 X10*3/uL [facility] Mean Platelet Volume 11.7 9.4 - 12.4 fL [facility] Neutrophils Percent Auto 26.4(L) 45 - 73 % [facility] Imm Gran Pct Auto 0.5(H) 0.0 - 0.4 % [facility] Lymphocytes Percent Auto 53.8(H) 20 - 40 % [facility] Monocytes Percent Auto 15.5(H) 2 - 11 % [facility] Eosinophils Percent Auto 2.5 0 - 4 % [facility] Basophils Percent Auto 1.3 0 - 2 % [facility] NRBC Pct Auto 0.0 0.0 - 0.2 /100WBC [facility] Neutrophils Absolute Auto 1.1(L) 2.0 - 8.3 x10*3/uL [facility] Imm Gran Abs Auto 0.02 0.00 - 0.03 X10*3/uL [facility] Lymphocytes Absolute Auto 2.2 1.2 - 4.9 X10*3/uL [facility] Monocytes Absolute Auto 0.6 0.1 - 1.2 X10*3/uL [facility] Eosinophils Absolute Auto 0.1 0.0 - 0.4 X10*3/uL [facility] Basophils Absolute Auto 0.1 0.0 - 0.2 X10*3/uL [facility] NRBC Abs Auto 0.000 0.0 - 0.012 X10*3/uL [facility] Blood Venous blood specimen / Unknown 09/11/2025 4:19 PM EST 09/11/2025 5:59 PM EST us Sen Turner MD LAB BLOOD ORDERABLES Final Resul t Performing Organization Address [facility] Co de Phone Number [facility] [address] [place] [phone] * (ABNORMAL) Hepatitis C Antibody with Reflex to HCV, RNA, Quantitative, Real- Time PCR (09/11/2025 4:19 PM EST) Hepatitis C Antibody Reactive( A) Nonreactive [facility] Comment:Presumptive evidence of antibodies to HCV. Blood Venous blood specimen / Unknown 09/11/2025 4:19 PM EST 09/11/2025 5:59 PM EST us Sen Turner MD LAB BLOOD ORDERABLES Final Resul t Performing Organization Address [facility]/ZIP Co de Phone Number [facility] [address] [place] [phone] * Hepatitis B surface antigen, EIA (09/11/2025 4:19 PM EST) Hepatitis B Surface Ag Negative Negative [facility] Blood Venous blood specimen / Unknown 09/11/2025 4:19 PM EST 09/11/2025 5:59 PM EST us Sen Turner MD LAB BLOOD ORDERABLES Final Resul t Performing Organization Address [facility] Co de Phone Number [facility] [address] [place] [phone] * HIV-1/2 Antigen and Antibodies, Fourth Generation, with Reflexes (09/11/2025 4:19 PM EST) HIV AB/AG Nonreactive Nonreactive [facility] Comment:HIV-1 p24 Ag and/or HIV-1/HIV-2 Ab not detected.A test result that is nonreactive does not exclude thepossibility of exposure to or infection with HIV-1 and/orHIV-2. Nonreactive results in this assay for individualswith prior exposure to HIV-1 and/or HIV-2 may be due toantigen and antibody levels that are below the limit ofdetection of this assay.The [employer] HIV Ag/Ab Combo assay result andsupplemental assay results should be interpreted inconjunction with the patient's clinical presentation,history and other laboratory results. If the results areinconsistent with clinical evidence, additional testing issuggested to confirm the result. Blood Venous blood specimen / Unknown 09/11/2025 4:19 PM EST 09/11/2025 5:59 PM EST us Sen Turner MD LAB BLOOD ORDERABLES Final Resul t Performing Organization Address [facility] de Phone Number [facility] [address] [place] [phone] * Hepatitis B Surface Antibody, Qualitative (09/11/2025 4:19 PM EST) ~Hepatitis B Surface Antibody NONREACTIVE Nonreactive [facility] Comment:Nonreactive: < 8.00 mIU/mL Blood Venous blood specimen / Unknown 09/11/2025 4:19 PM EST 09/11/2025 5:59 PM EST us Sen Turner MD LAB BLOOD ORDERABLES Final Resul t Performing Organization Address [facility] Co de Phone Number [facility] [address] [place] [phone] * ECG 12 lead (09/11/2025 4:12 PM EST) Narrative NameSen MD - 09/11/2025 4:12 PM EST EKG Normal sinus rhythm, HR 90; no ischemic changes; non-specific T wave flattening II, III, AVF. Qtc 477 (patient on methadone). Sen Name ECG ORDERABLES Final Result from Last 3 Months Insurance [facility] [address] [place] [id number] Care Teams Inorganic Chemist Relationship Specialty Start Date End Date Name, MD Sen [address] [place] [phone] PCP - General Internal Medicine 09/11/25
--- OUTSIDE RECORDS SUMMARY | 2025-09-28 13:12 | XMS_ITS | Encounter Summary ---
Author Organization [employer] Address [address] [facility] [address]t [place] [address] Care Team Providers Care Meteorological Technician Name Role Phone Name, Sen CONKLIN Primary Care Provider [phone] Reason for Visit * Reason Onset Date Comments New Patient Appt 05/15/2023 Encounter Details Date Type Department Care Team (Late Contact Info) Description 05/15/2023 Telephone [facility] MED[facility] [address] [place] [address] Pito Rivera MD [address] [place] [address] New Patient Appt Social History Tobacco Use [...] AM EDT Tc to El to Offer SCOUT LEASER Appt; Pt responded and was informed that he does not have insurance to please contact Screen or to please come our insurance enrollment for help; once the process is complete, to please call back at [phone] to get appt as soon as possible. documented in this encounter Plan of Treatment Upcoming Encounters Date Type Department Care Team (Late Contact Info) Description 10/11/2025 3:15 PM EST Office Visit [facility] MED[facility] [address] [place] [address] Shaan De Paz FNP [address] [place] [phone] documented as of this encounter Visit Diagnoses Not on filedocumented in this encounter Care Teams Meteorological Technician Relationship Specialty Start Date End Date Name, MD Sen [address] [place] [phone] PCP - General Internal Medicine 09/11/25 documented as of this encounter
--- OUTSIDE RECORDS SUMMARY | 2025-09-28 13:12 | XMS_ITS | Encounter Summary ---
Author Organization [employer] Address [address] [facility] [address] [place] [address] Care Team Providers Care Boring Inspector Name Role Phone Name, Sen CONKLIN Primary Care Provider [phone] Encounter Details Date Type Department Care Team ([facility] st Contact Info) Description 09/27/2025 Orders Only [facility] [address] [place], [place] [phone] Moises Whitman MD [address] [place] [address] Primary hypertension (Primary Dx) Social History Tobacco Use Types Packs/Day Years Used Date Smoking Tobacco: Every Day Cigarettes Passive Smoke Exposure: Current Smokeless Tobacco: Never Alcohol Use Standard Drinks/Week [...] AM EDT documented as of this encounter Plan of Treatment Upcoming Encounters Date Type Department Care Team (Late st Contact Info) Description 10/11/2025 3:15 PM EST Office Visit [facility] MEDICINE [address] [place] [phone] Shaan De Paz FNP [address] [place] [phone] Pending Results Name Type Priority Associated Diagnoses Date /Time Reticulocyte Count Lab Routine Primary hypertension 09/28/2025 9:40 AM EST Scheduled Orders Name Type Priority Associated Diagnoses Orde r Schedule Pathologist Review Of Peripheral Smear Lab Routine Primary hypertension Expected: 09/27/2025 (Approximate), Expires: 09/27/2026 documented as of this encounter Procedures Procedure Name Priority Date/Time Associated Diagnosis Comments RETICULOCYTE COUNT Routine 09/28/2025 9:40 AM EST Primary hypertension documented in this encounter Visit Diagnoses Diagnosis Primary hypertension- Primary Unspecified essential hypertension documented in this encounter Care Teams Boring Inspector Relationship Specialty Start Date End Date Name, MD Sen [address] [place] [phone] PCP - General Internal Medicine 09/11/25 documented as of this encounter
--- OUTSIDE RECORDS SUMMARY | 2025-09-28 13:12 | XMS_ITS | Encounter Summary ---
Author Organization [employer] Address [address] [place] [address] Care Team Providers Care Completion Manager Name Role Phone Name, Sen CONKLIN Primary Care Provider [phone] Encounter Details Date Type Department Care Team (Latest Contact Info) Description 09/27/2025 Travel Social History Tobacco Use Types Packs/Day [...] your housing situation today? I have js becky 09/04/[address] you li [...] Description 10/11/2025 3:15 PM EST Office Visit [facility] [address] [place] [address] [phone] Shaan De Paz FNP [address] [place] [address] documented as of this encounter Visit Diagnoses Not on filedocumented in this encounter Care Teams Completion Manager Relationship Specialty Start Date End Date Name, MD Sen [address] [place] [phone] PCP - General Internal Medicine 09/11/25 documented as of this encounter
--- OUTSIDE RECORDS SUMMARY | 2025-09-28 13:12 | XMS_ITS | Encounter Summary ---
Author Organization [employer] Address [address] [place] [address] Care Team Providers Care Invasive Cardiovascular Technologist Name Role Phone Name, Sen CONKLIN Primary Care Provider [phone] Reason for Visit * Reason Onset Date Comments CHARTPREP 09/26/2025 Encounter Details Date Type Department Care Team ([facility] st Contact Info) Description 09/26/2025 Telephone [facility] [address] [place] [address] Name, MD Sen [address] [place] [address] CHARTPREP Social History Tobacco Use Types Packs/Day Years [...] encounter Miscellaneous Notes * Telephone Encounter - Valentin Orozco [place] - 09/26/2025 9:18 AM EST Chart Prep Labs: not done lab order placed on 09/22/25 Images: not done Referrals: appointment pending Vaccines due: Covid, Hep B, Hep A, RSV, and Zoster Screenings: colonoscopy,lipid panel, Overdue care gaps: Not applicable documented in this encounter Plan of Treatment Upcoming Encounters Date Type Department Care Team (Late st Contact Info) Description 10/11/2025 3:15 PM EST Office Visit [facility] [address] [place] [address] Shaan De Paz FNP [address] [place] [address] documented as of this encounter Visit Diagnoses Not on filedocumented in this encounter Care Teams Invasive Cardiovascular Technologist Relationship Specialty Start Date End Date Name, MD Sen [address] [place] [address] PCP - General Internal Medicine 09/11/25 documented as of this encounter
--- OUTSIDE RECORDS SUMMARY | 2025-09-28 13:12 | XMS_ITS | Encounter Summary ---
Author Organization [employer] Address [address] [place] [address] Care Team Providers Care Automation Analyst Name Role Phone Name, Sen CONKLIN Primary Care Provider [phone] Encounter Details Date Type Department Care Team (Late st Contact Info) Description 09/28/2025 Orders Only [facility] [address] [place], [place] [phone] Nadya Dumont MD [address] [place] [address] Social History Tobacco Use Types Packs/Day Years [...] Description 10/11/2025 3:15 PM EST Office Visit [facility] [address] [place] [address] Shaan De Paz FNP [address] [place] [address] documented as of this encounter Procedures Procedure Name Priority Date/Time Associated Diagnosis Comments PROTHROMBIN TIME-INR Routine 09/28/2025 9:40 AM EST HEPATIC FUNCTION PANEL Routine 9:40 AM EST COMPREHENSIVE METABOLIC PANEL Routine 09/28/2025 9:40 AM EST documented in this encounter Results * Hepatic Function Panel (09/28/2025 9:40 AM EST) Bilirubin, Direct 0.2 0.0 - 0.5 mg/dL [facility] 09/28/2025 9:40 AM EST 09/28/2025 11:07 AM EST Nadya Dumont MD LAB BLOOD ORDERABLES Final R esult [facility] [address] [place] [phone] [phone] * (ABNORMAL) Comprehensive Metabolic Panel (09/28/2025 9:40 AM EST) Sodium 141 135 - 145 mmol/L [facility] Potassium 4.0 3.3 - 5.1 mmol/L [facility] Chloride 107 96 - 108 mmol/L [facility] Carbon Dioxide 28 22 - 29 mmol/L [facility] Anion Gap 10(L) 12 - 20 [facility] Urea Nitrogen (BUN) 9 9 - 16 mg/dL [facility] Creatinine, Serum 0.63 0.5 - 1.4 mg/dL [facility] Estimated Glomerular Filt Rate >60 [facility] Comment:Chronic Kidney Disea se: Estimated GFR < 60 mL/min/1.26u9Irswyq Kidney Disease: Estimated GFR < 15 mL/min/1.73m2 Glucose 115 60 - 115 mg/dL [facility] Calcium 8.5 8.4 - 10.2 mg/dL [facility] Bilirubin, Total 0.3 0.0 - 1.0 mg/dL [facility] Aspartate Amino Transferase 79(H) 5 - 37 U/L [facility] Alanine Aminotransferase 71(H) 0 - 40 U/L [facility] Total Protein 7.0 6.5 - 8.0 g/dL [facility] Albumin Level 3.6 3.5 - 5.0 g/dL [facility] Alkaline Phosphatase 103 39 - 117 U/L [facility] 09/28/2025 9:40 AM EST 09/28/2025 11:07 AM EST Nadya Dumont MD LAB BLOOD ORDERABLES Final R esult Performing Organization Address [facility]/ZIP Co de Phone Number [facility] [address] [place] [address] [phone] * Prothrombin Time-INR (09/28/2025 9:40 AM EST) Prothrombin Time 12.1 11.2 - 13.5 SEC [facility] INTERNATIONAL NORM RATIO 1.0 0.9 - 1.1 [facility] Comment:INTERNATIONAL NORMAL IZED RATIO (INR) [...] ORDERABLES Final R esult Performing Organization Address City/State/[facility] Co de Phone Number [facility] [address] [place] [phone] documented in this encounter Visit Diagnoses Not on filedocumented in this encounter Care Teams Automation Analyst Relationship Specialty Start Date End Date Name, MD Sen [address] [place] [address] PCP - General Internal Medicine 09/11/25 documented as of this encounter
[2025-09-28 13:17] LABS: HBc Num2 8.93 S/CO; HBc Num3 8.82 S/CO
[2025-09-29 06:39] LABS: Hepatitis B Core Antibody IgM NON-REACTIVE (NON-REACTIVE)
[2025-09-29 08:26] LABS: ~Hepatitis A Antibody IgG 7.48 S/CO (0.00-0.99)
[2025-10-07 18:02] LABS: FIB-ALT 48 U/L (9-46); FIB-Alpha-2-Macroglobulin 324 mg/dL (106-279); FIB-Apolipoprotein A1 177 mg/dL (94-176); FIB-GGT 123 U/L (3-70); FIB-Haptoglobin 64 mg/dL (43-212); FIB-Total Bilirubin 0.4 mg/dL (0.2-1.2); Liver Fibrosis Score 0.64; Liver Fibrosis Stage F3; Nec Inflam Act Grade A1-A2; Nec Inflam Act Score 0.39
== END 2025-09-28 09:32 | disposition home or self-care (01) ==
LOC: HO.HHCL 09:31
PROVIDERS: Internal Medicine; PCP Internal Medicine Geriatric Medicine; Visit Provider Family Medicine
DX: D75.89 Other specified diseases of blood and blood-forming organs (principal); I10 Essential (primary) hypertension; B19.21 Unspecified viral hepatitis C with hepatic coma
CPT/HCPCS: 36415; 80053; 81596; 82248; 82607; 82746; 83735; 85045; 85610; 86704; 86705; 86708; 87902